=== PATIENT | female | born 1960 | race Caucasian/White ===

== ENCOUNTER 2018-10-04 05:06 | Outpatient (CLI) | payer OTHER ==
[2018-10-04 05:27] LABS: URINE SOURCE CLEAN C
[2018-10-04 05:34] LABS: % BASOPHILS 0.8 % (0.0-2.0); % LYMPHOCYTES 32.5 % (20.0-50.0); % MONOCYTES 9.8 % (2.0-10.0); % NEUTROPHILS 49.9 % (40.0-80.0); BASOPHILE ABSOLUTE 0.1 Th/cumm (0-0.2); EOSINOPHILE ABSOLUTE 0.7 Th/cmm (0.1-0.4); HEMATOCRIT 42.8 % (41.0-60); HEMOGLOBIN 14.1 gm/dL (12-16); LYMPHOCYTE ABSOLUTE 3.1 Th/cmm (1.5-3.0); MEAN CORPUSCULAR HEMOGLOBIN 27.3 pg (27.0-31.0); MEAN CORPUSCULAR HGB CONC 32.9 pg (28.0-36.0); MONOCYTE ABSOLUTE 0.9 Th/cmm (0.3-1.0); NEUTROPHILE ABSOLUTE 4.7 Th/cmm (1.8-8.0); PLATELET COUNT 318 Th/cmm (150-400); RED BLOOD COUNT 5.16 Mil/cmm (3.80-5.10); RED CELL DISTRIBUTION WIDTH 12.9 % (11.5-20.0); WHITE BLOOD COUNT 9.5 Th/cmm (4.8-10.8)
[2018-10-04 06:00] LABS: ALB/GLOB RATIO 1.2 (1.0-1.8); ALBUMIN 4.1 gm/dL (3.7-5.3); ALKALINE PHOSPHATASE 80 U/L (34-104); ANION GAP 11.2 (7.0-16.0); BILIRUBIN,TOTAL 0.4 mg/dL (0.3-1.0); BUN - UREA NITROGEN 14 mg/dL (7-25); CALCIUM SERUM 9.4 mg/dL (8.6-10.3); CARBON DIOXIDE 24.6 mEq/L (21.0-31.0); CHLORIDE 106 mEq/L (98-107); CHOLESTEROL 174 mg/dL (<200); CREATININE - SERUM 0.7 mg/dL (0.6-1.2); GFR AFRICAN-AMERICAN > 60.0 ml/min (>90); GFR NON AFRICAN-AMERICAN > 60.0 ml/min; GLUCOSE 110 mg/dL (70-105); HDL -HIGH DENSITY LIPOPROTEIN 39 mg/dL (23-92); POTASSIUM SERUM 3.8 mEq/L (3.5-5.1); SGOT 21 U/L (13-39); SGPT/ALT 40 U/L (7-52); SODIUM SERUM 138 mEq/L (136-145); TOTAL PROTEIN,SERUM 7.4 gm/dL (6.0-8.3); TRIGLYCERIDES 111 mg/dL (<150)
[2018-10-04 06:01] LABS: URINE BILIRUBIN NEGATIVE (NEGATIVE); URINE BLOOD TRACE (NEGATIVE); URINE GLUCOSE (UA) NEGATIVE (NEGATIVE); URINE KETONE NEGATIVE (NEGATIVE); URINE LEUKOCYTE ESTERASE TRACE (NEGATIVE); URINE MICROSCOPIC INDICATED? YES; URINE NITRATE NEGATIVE (NEGATIVE); URINE PH 5.5 (4.6 - 8.0); URINE PROTEIN NEGATIVE (NEGATIVE); URINE UROBILINOGEN 0.2 E.U./dL (0.2 - 1.0)
[2018-10-04 06:09] LABS: URINE COLOR YELLOW
[2018-10-04 06:10] LABS: URINE CLARITY HAZY (CLEAR); URINE EPITHELIAL CELLS FEW /lpf (FEW)
[2018-10-04 06:11] LABS: URINE BACTERIA FEW /hpf (NONE SEEN)
[2018-10-05 07:08] LABS: A1C 5.9 % (4.8-5.6)
[2018-10-06 10:15] LABS: T4 FREE 1.24 ng/dL (0.82-1.77)
== END 2018-10-04 05:52 | disposition home or self-care (01) ==
LOC: LAB 05:06
PROVIDERS: ATTEND Family Medicine
DX: Z00.00 Encounter for general adult medical examination without abnormal findings (principal); Z13.220 Encounter for screening for lipoid disorders; I10 Essential (primary) hypertension; E55.9 Vitamin D deficiency, unspecified
CPT/HCPCS: 36415-UA; 80053-TC; 80061-TC; 81001-TC; 82652-90; 83036-90; 84439-90; 84443-TC; 85025-TC